=== PATIENT | female | born 1995 | race Caucasian/White ===

== ENCOUNTER 2017-10-11 19:02 | Emergency (ER) | payer SELFPAY ==
[~2017-10-11] VITALS: Ht 175.3 cm; Wt 56.8 kg
[2017-10-11 19:04] VITALS: BP 139/62; PULSE 128; RESP 24; TEMP 99.5; O2SAT 100
--- NOTE | 2017-10-11 22:19 | PD ---
Physical Exam Date Seen by Provider: Oct 11, 2017 Time Seen by Provider: 21:37 Narrative 20-year-old female presents to the emergency department for evaluation of right upper quadrant abdominal pain that started today, but has been worsening. She states she has had this pain in the past. Current pain is 7/10. Data Data Last Documented VS Vital Signs Date Time Temp Pulse Resp B/P (MAP) Pulse Ox O2 Delivery O2 Flow Rate FiO2 10/11/17 19:04 99.5 128 24 139/62 (87) 100 Room Air MDM Supervised Visit with LATONIA: No Narrative Course 21-year-old female presents to the emergency department for evaluation of right upper quadrant abdominal pain that started today. She reports similar pain in the past. Patient was initially seen in triage. She left AGAINST MEDICAL ADVICE before she can be moved to medical bed. Diagnosis Primary Impression: Left against medical advice Disposition: 07 AGAINST MEDICAL ADVICE Maria Dolores Gutierrez Oct 11, 2017 22:19
== END 2017-10-11 21:37 | disposition left against medical advice (07) ==
LOC: NED 19:02
DX: R10.11 Right upper quadrant pain (principal); Z53.21 Procedure and treatment not carried out due to patient leaving prior to being seen by health care provider
CPT/HCPCS: 99281